=== PATIENT | female | born 1975 | race Caucasian/White ===

== ENCOUNTER 2019-11-01 17:02 | Emergency (ER) | payer MEDICAID, SELFPAY ==
[2019-11-01 17:10] VITALS: BP 121/81; PULSE 90; RESP 18; TEMP 36.9; O2SAT 98; BMI 33.9
--- NOTE | 2019-11-01 17:44 | ED_ITS ---
Documented by User: Mike Fitzpatrick DO 11/02/19 07:06 HPI - Abdominal Pain General: Chief Complaint: Abdominal Pain Stated Complaint: 6 weeks preg/back pain Time Seen by Provider: 11/01/19 17:11 History of Present Illness: HPI narrative: 44-year-old female who comes in today complaining of pelvic pain and back cramping. She was sent here from Dr. Parada at [place] [facility] for a pelvic ultrasound. She is known to be had a beta-hCG of 56,393 today at [place] she has labs in hand see dictation below. First-ever last normal menstrual period she is very unsure she thinks it was maybe about 4 to 6 weeks ago. She had quite a bit of back pain and cramping that started yesterday and is gotten progressively worse today. She is also had some hyperemesis gravidarum she denies any GI blood losses denies any diarrhea. She denies any dysuria urgency or frequency either. She is not been seen or evaluated for this to this point. She was sent here to confirm intrauterine . Reviewing the labs from [place] shows a white count of 11.6 she has a hemoglobin of 12 hematocrit of 38 1 platelets 369 the differential was normal her sodium was 136 potassium is 3.9 BUN 6 creatinine 0.62 and her glucose is 123. MD elicited complaint: other (Pelvic and back pain) Pertinent past history: other ( confirmed by beta-hCG not confirmed to be intrauterine) Onset (ago): day(s) Pain Consistency: intermittent Location: Pelvis Severity: severe Quality: cramping Radiation: back Exacerbating factors: movement Relieving factors: nothing Context: other (Recently discovered ) Associated Symptoms: Reports anorexia, GI cramping, nausea, poor appetite and vomiting; Denies change in bowel habits, change in stool character, coffee ground emesis, constipation, diarrhea, dyspepsia, dysuria, excessive flatus, fever(s), heartburn, hematochezia, hematuria, hematemesis, fecal incontinence, loose stools, melena and syncope Review of Systems Const: Denies: fever(s) ENMT: Denies: throat pain, ear or mastoid pain, nasal discharge or nasal congestion Card: Denies: syncope Resp: Denies: dyspnea, productive cough or non-productive cough GI: Reports: nausea, vomiting and GI cramping; Denies: hematemesis, coffee ground emesis, heartburn, diarrhea, constipation, excessive flatus, fecal incontinence, change in bowel habits, change in stool character, hematochezia or melena : Denies: dysuria or hematuria Skin/Breast: Denies: rash or pruritus PFSH ED PFSH: Medical History CVA (cerebral vascular accident) Tibia/fibula fracture Surgical History Hx of cholecystectomy Social History Smoking and tobacco status: light tobacco smoker Physical Exam Const: COMMON NORMALS: no acute distress GENERAL APPEARANCE: cooperative and comfortable ORIENTATION/CONSCIOUSNESS: Yes awake, Yes oriented to person, Yes oriented to place and Yes oriented to time HENMT: COMMON NORMALS: normocephalic, atraumatic, hearing grossly normal bilaterally, external ears normal, EAC's normal, TM's normal bilaterally, Normal nasal mucous membranes and turbinates present, moist oral mucous membranes and oropharynx normal HEAD & SCALP: normocephalic and atraumatic NOSE: Normal nasal mucous membranes and turbinates present EXTERNAL EAR: Yes external ears normal EXTERNAL AUDITORY CANAL: EAC's normal TYMPANIC MEMBRANE: TM's howie l bilaterally Eye: COMMON NORMALS: Equal, round and reactive pupils present, EOMs intact bilaterally, conjunctivae normal and no scleral icterus CONJUNCTIVA: Yes conjunctivae normal PUPIL: Yes Equal, round and reactive pupils present Neck/C-Spine: COMMON NORMALS: full ROM, no lymphadenopathy, supple and no JVD Lymph: LYMPHATIC: no lymphadenopathy noted and no lymphedema noted Resp: COMMON NORMALS: normal respiratory effort, No retractions, No use of accessory muscles and clear to auscultation bilaterally AUSCULTATION: clear to auscultation bilaterally Cardio: COMMON NORMALS: no JVD, regular rate, regular rhythm and No murmurs present (Cardio) RATE: regular rate RHYTHM: regular rhythm GI: COMMON NORMALS: Soft to palpation and No hepatosplenomegaly present AUSCULTATION: Yes normoactive bowel sounds PALPATION: Yes Soft to palpation, No Tenderness to palpation present (GI), No Guarding due to palpation present (GI) and Yes No hepatosplenomegaly present Extremity: COMMON NORMALS: normal to inspection, capillary refill normal, no clubbing, cyanosis or edema, no calf tenderness and no pedal edema Neuro: SENSORIUM/ORIENTATION: Yes oriented to person, Yes oriented to place and Yes oriented to time Skin: COMMON NORMALS: no rashes or lesions noted GENERAL SKIN EXAM: no rashes or lesions noted Course Vital Signs: Vital signs: Vital Signs Temperature 98.5 F 11/01/19 17:10 Pulse Rate 85 11/01/19 19:30 Respiratory Rate 18 11/01/19 19:30 Blood Pressure 127/83 11/01/19 19:30 Pulse Oximetry 100 11/01/19 19:30 MDM - Abdominal Pain MDM Narrative: Medical decision making narrative: Ordered urine and transvaginal ultrasound. Care turned over to Dr. Whatley at change of shift Lab Data: Labs: Lab Results 11/01/19 Range/Units 18:39 Urine Color Yellow (Yellow) Urine Appearance Clear (CLEAR) Urine pH 6.5 (5-7) Ur Specific Gravit y 1.015 (1.005-1.030) Urine Protein Neg (Negative) Urine Glucose (UA) Norm (Normal) Urine Ketones Negative (Negative) Urine Blood Neg (Negative) Urine Nitrate Negative (Negative) Urine Bilirubin Neg (NEGATIVE) Urine Urobilinogen 1 H (Negative) mg/dL Ur Leukocyte Alina ase Negative (Negative) Discharge Plan Discharge Patient Disposition: Home, Self-Care Clinical Impression: Incomplete miscarriage Condition: Stable Prescriptions: No Action Tylenol 325 mg Tablet 325 mg PO QID PRN (Reason: Pain) RF: 0 atorvastatin 10 mg tablet 10 mg PO DAILY RF: 0 alprazolam 0.5 mg tablet 0.5 mg PO BID RF: 0 Discharge Orders: Discharge Order (Routine); Ordered 11/01/19 Ordered By: Perico Whatley Referrals: Parker Montoya MD [Family Provider] - 4-7 days Discharge Diet: Advance as tolerated Discharge Activity: Resume usual activity Patient Instructions: Threatened Miscarriage (ED) Discharge Date/Time: 11/01/19 19:35 Coding Level of Care Code ED Winch Runner for Chg Fwd Exam Comprehensive Documented by User: Perico Whatley MD 11/01/19 19:30 HPI - Abdominal Pain General: Chief Complaint: Abdominal Pain Stated Complaint: 6 weeks preg/back pain Time Seen by Provider: 11/01/19 17:11 [facility] ED PFSH: Medical History CVA (cerebral vascular accident) Tibia/fibula fracture Surgical History Hx of cholecystectomy Social History Smoking and tobacco status: light tobacco smoker Course Vital Signs: Vital signs: Vital Signs Temperature 98.5 F 11/01/19 17:10 Pulse Rate 85 11/01/19 19:30 Respiratory Rate 18 11/01/19 19:30 Blood Pressure 127/83 11/01/19 19:30 Pulse Oximetry 100 11/01/19 19:30 MDM - Abdominal Pain MDM Narrative: Medical decision making narrative: I took patient over from Dr. Reed. Ultrasound showed 8-week IUP with no heart activity. I informed patient of this and told her she is likely going to have a miscarriage. She states she had a miscarriage previously at 8 weeks like this where they could not find a heart rate. I informed her she does need to follow-up with her PCP Dr. Montoya in 1 to 2 days for a recheck. She is return to the ER if she has any worsening pain or bleeding. She understands and agrees to this plan. Lab Data: Labs: Lab Results 11/01/19 Range/Units 18:39 Urine Color Yellow (Yellow) Urine Appearance Clear (CLEAR) Urine pH 6.5 (5-7) Ur Specific Gravit y 1.015 (1.005-1.030) Urine Protein Neg (Negative) Urine Glucose (UA) Norm (Normal) Urine Ketones Negative (Negative) Urine Blood Neg (Negative) Urine Nitrate Negative (Negative) Urine Bilirubin Neg (NEGATIVE) Urine Urobilinogen 1 H (Negative) mg/dL Ur Leukocyte Alina ase Negative (Negative) Discharge Plan Discharge Patient Disposition: Home, Self-Care Clinical Impression: Incomplete miscarriage Condition: Stable Prescriptions: No Action Tylenol 325 mg Tablet 325 mg PO QID PRN (Reason: Pain) RF: 0 atorvastatin 10 mg tablet 10 mg PO DAILY RF: 0 alprazolam 0.5 mg tablet 0.5 mg PO BID RF: 0 Discharge Orders: Discharge Order (Routine); Ordered 11/01/19 Ordered By: Perico Whatley Referrals: Parker Montoya MD [Family Provider] - 4-7 days Discharge Diet: Advance as tolerated Discharge Activity: Resume usual activity Patient Instructions: Threatened Miscarriage (ED) Discharge Date/Time: 11/01/19 19:35 Coding Level of Care Code ED Winch Runner for Martyg Fwd Exam Comprehensive
--- NOTE | 2019-11-01 17:44 | US_ITS ---
WS: [id number] TRANSABDOMINAL PELVIC AND TRANSVAGINAL PELVIC ULTRASOUND HISTORY: cramping COMPARISON: None available. Uterus: Anteverted uterus is slightly enlarged. Mildly heterogeneous appearance to the myometrium. Endometrium: Intrauterine gestational sac is identified. There is a crown-rump length measuring 1.7 c m which corresponds to a gestation of 8 weeks and 1 day. No movement or cardiac activity identi fied. There is a normal yolk sac. Right ovary: 2.7 cm x 2.4 cm x 2.7 cm. Small simple cyst within the RIGHT ovary measures 2.1 x 2.0 x 2.0 cm. Left ovary: 2.2 cm x 1.6 cm x 1.5 cm. Normal size and vascularity. No free fluid. US/US pelvic with transvaginal IMPRESSION: 1. Intrauterine gestation of 8 weeks and 1 day. No cardiac activity identified . Consistent with embryonic demise. 2. Mildly heterogeneous uterus.
--- NOTE | 2019-11-01 18:06 | PC.NURSE ---
Ultrasound at bedside.
[2019-11-01 18:48] LABS: Add Urine Microscopic? NO
[2019-11-01 18:54] LABS: Bilirubin Urine Neg (NEGATIVE); Blood Urine Neg (Negative); Glucose Urine UA Norm (Normal); Ketones Urine Negative (Negative); Leukocyte Esterase Urine Negative (Negative); Nitrate Urine Negative (Negative); Protein Urine Neg (Negative); Specific Gravity, Urine 1.015 (1.005-1.030); Urine Appearance Clear (CLEAR); Urine Color Yellow (Yellow); Urobilinogen Urine 1 mg/dL (Negative); pH Urine 6.5 (5-7)
[2019-11-01 19:00] VITALS: BP 121/81; PULSE 88; RESP 18; O2SAT 100
[2019-11-01 19:30] VITALS: BP 127/83; PULSE 85; RESP 18; O2SAT 100
== END 2019-11-01 19:35 | disposition home or self-care (01) ==
PROVIDERS: Family Medicine; Emergency Provider Emergency Medicine; Family Provider Family Medicine
DX: O03.4 Incomplete spontaneous abortion without complication (principal); Z86.73 Personal history of transient ischemic attack (TIA), and cerebral infarction without residual deficits; O99.331 Smoking (tobacco) complicating pregnancy, first trimester; F17.210 Nicotine dependence, cigarettes, uncomplicated; Z3A.01 Less than 8 weeks gestation of pregnancy
CPT/HCPCS: 12345; 76830; 76856; 81003; 99281; 99283

== ENCOUNTER 2019-11-17 18:11 | Emergency (ER) | payer MEDICAID, SELFPAY | END 2019-11-17 21:23 | disposition admitted as inpatient to this hospital (09) | LOC: ER 12-28 06:47 | PROVIDERS: Emergency Provider Emergency Medicine; PCP Family Medicine | DX: R10.9 Unspecified abdominal pain (principal); N93.9 Abnormal uterine and vaginal bleeding, unspecified; Z86.73 Personal history of transient ischemic attack (TIA), and cerebral infarction without residual deficits; F17.210 Nicotine dependence, cigarettes, uncomplicated | CPT/HCPCS: 12345; 36415; 76801; 84702; 85014; 85018; 85025; 86850; 86900; 86920; 96375; 99283; J2060; J2270; J7030; J7040; P9016 ==

== ENCOUNTER 2019-11-17 18:11 | Inpatient (IN) | payer MEDICAID, SELFPAY ==
[2019-11-17] VITALS (14 sets, daily range): BP systolic 101–128; BP diastolic 62–87; PULSE 75–111; RESP 13–18; TEMP 36.4–36.9; O2SAT 98–100; BMI 33.9
--- NOTE | 2019-11-17 18:18 | USR_ITS ---
PROCEDURE INFORMATION: Exam: US First Trimester, Transabdominal and US , Transvaginal Exam date and time: 11/17/2019 6:27 PM Age: 44 years old Clinical indication: Lmp or gestational age (in weeks): N/a; Other: Bleeding heavily; Patient HX: Prior ultrasound iup was present but no heart tones were visible. Today iup not visualized. Heterogenous uterus. Patient more than likely still passing rpoc. Neither left or right overy visualized. No fluid in cul de sac. ; Additional info: Abd pain TECHNIQUE: Imaging protocol: Real-time transabdominal obstetrical ultrasound of the maternal pelvis and a first trimester , less than 14 weeks 0 days, with image documentation. Transvaginal imaging was used for better evaluation of the fetus and adnexa. COMPARISON: US pelvic with transvaginal 11/01/2019 6:11 PM FINDINGS: Gestation: Negative for intrauterine gestational sac pole or yolk sac MATERNAL: Uterus: Unremarkable. 13.5 cm x 5.3 cm x 5.5 cm. Uterine endometrium is within normal limits. Cervix: Unremarkable. Right adnexa: Is not visible due to bowel gas Left adnexa: Is not visible due to bowel gas Intraperitoneal space: No intraperitoneal free fluid. US/US OB <= 14 weeks fetus [id number] IMPRESSION: 1. Negative for intrauterine gestational sac pole or yolk sac. 2. Unremarkable uterus and endometrium 3. The ovaries are not visible due to bowel gas
--- NOTE | 2019-11-17 18:25 | W.ED.PREGNAN ---
HPI - General: Chief complaint: Vaginal Bleeding Stated complaint: bleeding and cramping Time Seen by Provider: 11/17/19 18:18 Source: patient Mode of arrival: ambulatory Limitations: no limitations History of Present Illness: HPI Narrative: 84-year-old female who was seen by me a few weeks ago for demise at 8 weeks. She had not been able to follow-up with Dr. Montoya but states morning she started having cramping and bleeding. Patient was seen at [facility] where she states that they did a pelvic exam and then she in the left. Patient states she has had off-and-on bleeding but it has slowed. States she still has abdominal cramping. She denies any fevers. States her pain is sharp in nature and rates it a 7 out of 10. MD Complaint: abdominal pain and vaginal bleeding Onset (ago): hour(s) Pain Consistency: constant Location: pelvis Associated symptoms: Deny abdominal pain, headache(s), nausea or vomiting Review of Systems Const: Denies: fever(s), chills, body aches or change in appetite Eyes: Denies: blurry vision or eye discomfort ENMT: Denies: throat pain or dental pain Card: Denies: chest pain Resp: Denies: dyspnea GI: Denies: abdominal pain, nausea, vomiting or diarrhea : Reports: vaginal bleeding Musc: Denies: neck pain or back pain Skin/Breast: Denies: rash Neuro: Denies: headache(s) Psych: Denies: depression Dannie/Lymph: Denies: easy bruising All/Imm: Denies: urticaria PFSH ED PFSH: Medical History (Updated 11/09/19 @ 00:00 by ) CVA (cerebral vascular accident) Tibia/fibula fracture Surgical History Hx of cholecystectomy Social History Smoking and tobacco status: heavy tobacco smoker Physical Exam Const: COMMON NORMALS: no acute distress, patient oriented x3 and healthy appearing HENMT: COMMON NORMALS: normocephalic and atraumatic HEAD & SCALP: normocephalic and atraumatic Eye: COMMON NORMALS: Equal, round and reactive pupils present and EOMs intact bilaterally PUPIL: Yes Equal, round and reactive pupils present Neck/C-Spine: COMMON NORMALS: full ROM and supple Chest: COMMONS NORMALS: normal inspection of the chest and normal palpation of entire chest wall Resp: COMMON NORMALS: normal respiratory effort, No retractions, No use of accessory muscles and clear to auscultation bilaterally AUSCULTATION: clear to auscultation bilaterally Cardio: COMMON NORMALS: regular rate, regular rhythm and No murmurs present (Cardio) RATE: regular rate RHYTHM: regular rhythm GI: COMMON NORMALS: Normal to inspection, nondistended, normoactive bowel sounds present, Soft to palpation, non-tender and no masses PALPATION: Yes Soft to palpation : OTHER: Large amount of clot in vaginal vault and cervix Extremity: COMMON NORMALS: normal to inspection and full ROM Neuro: COMMON NORMALS: patient oriented x3, moves all extremities and no focal motor deficits Psych: COMMON NORMALS: mental status grossly normal, Normal thought process present and cooperative THOUGHT PROCESS: Normal thought process present Skin: COMMON NORMALS: no rashes or lesions noted and no wounds GENERAL SKIN EXAM: no rashes or lesions noted Course Vital Signs: Vital signs: Vital Signs Temperature 97.6 F 11/17/19 20:34 Pulse Rate 78 11/17/19 20:34 Respiratory Rate 13 11/17/19 20:34 Blood Pressure 117/85 11/17/19 20:34 Pulse Oximetry 100 11/17/19 20:34 MDM - OB/Uterine Contractions MDM Narrative: Medical decision making narrative: Patient presents with a miscarriage with a large amount of vaginal bleeding. On my pelvic exam I pulled out a very large amount of clot but did clear clot from the cervix. After that patient's bleeding has decreased a large amount. She did have a drop of hemoglobin from 10.7-7.9 and will transfuse. Patient's vital signs have improved as well. Dr. Quiros is seen patient in the ER and will admit and monitor for D&C. I spoke to Dr. Montoya who is admitting and Alaina was consulted. Patient stable and will admit. Lab Data: Labs: Lab Results 11/17/19 11/17/19 11/17/19 Range/Units 18:30 18:30 18:30 WBC 14.4 H (4.0-10.0) 10^3/ uL RBC 4.00 L (4.1-5.3) 10^6/u L Hgb 10.7 L (11.5-15.3) g/dL Hct 34.3 L (37.0-47.0) % MCV 85.8 (81-99) fL MCH 26.8 L (28.0-34.0) pg MCHC 31.2 (30.0-36.0) g/dL RDW 14.6 (12.1-15.1) % Plt Count 405 H (130-400) 10^3/c mm MPV 10.2 (7.4-10.4) fL Neut % (Auto) 75.1 % Lymph % (Auto) 19.2 % [place] % (Auto) 3.7 % Eos % (Auto) 1.1 % Baso % (Auto) 0.4 % Neut # (Auto) 10.8 H (1.8-7.7) 10^3/u L Lymph # (Auto) 2.8 (0.8-4.8) 10^3/u L [place] # (Auto) 0.5 (0.2-0.9) 10^3/u L Eos # (Auto) 0.2 (0.0-0.8) 10^3/u L Baso # (Auto) 0.1 (0.0-0.1) 10^3/u L Nucleated RBC % (a uto) 0 % Nucleated RBCs # 0.0 /100WBC Ser , Bia i-Qnt 4091.00 mIU/mL Blood Type Cancelled Rho(D) Type Cancelled Antibody Screen Crossmatch 11/17/19 11/17/19 Range/Units 18:30 20:15 WBC (4.0-10.0) 10^3/ uL RBC (4.1-5.3) 10^6/u L Hgb 7.9 L (11.5-15.3) g/dL Hct 26.0 L (37.0-47.0) % MCV (81-99) fL MCH (28.0-34.0) pg MCHC (30.0-36.0) g/dL RDW (12.1-15.1) % Plt Count (130-400) 10^3/c mm MPV (7.4-10.4) fL Neut % (Auto) % Lymph % (Auto) % [place] % (Auto) % Eos % (Auto) % Baso % (Auto) % Neut # (Auto) (1.8-7.7) 10^3/u L Lymph # (Auto) (0.8-4.8) 10^3/u L [place] # (Auto) (0.2-0.9) 10^3/u L Eos # (Auto) (0.0-0.8) 10^3/u L Baso # (Auto) (0.0-0.1) 10^3/u L Nucleated RBC % (a uto) % Nucleated RBCs # /100WBC Ser , Bia i-Qnt mIU/mL Blood Type A Positive Rho(D) Type Positive Antibody Screen Negative Crossmatch See Detail Critical Care Time Critical Care Time: Critical Care Time: Yes Total Critical Care Time: 36 Attestation: This case had a high probability of a clinically significant, sudden, or life threatening deterioration of this patient's condition which required my full and direct attention, intervention and personal management. Discharge Plan Discharge Prescriptions: No Action acetaminophen [Tylenol] 325 mg Tablet 325 mg PO QID PRN (Reason: Pain) RF: 0 alprazolam 0.5 mg tablet 0.5 mg PO BID RF: 0 Referrals: Parker Montoya MD [Primary Care Provider] - Coding Level of Care Code ED Front Desk Specialist for Chg Fwd Exam Comprehensive
[2019-11-17] MEDS: morphine 4 mg/mL SDV 1 mL IVP (18:40)
[2019-11-17 18:48] LABS: Basophils # 0.1 10^3/uL (0.0-0.1); Basophils % 0.4 %; Eosinophils # 0.2 10^3/uL (0.0-0.8); Eosinophils % 1.1 %; Hematocrit 34.3 % (37.0-47.0); Hemoglobin 10.7 g/dL (11.5-15.3); Lymphocytes # 2.8 10^3/uL (0.8-4.8); Lymphocytes % 19.2 %; Mean Corpuscular HGB Conc 31.2 g/dL (30.0-36.0); Mean Corpuscular Hemoglobin 26.8 pg (28.0-34.0); Mean Corpuscular Volume 85.8 fL (81-99); Mean Platelet Volume 10.2 fL (7.4-10.4); Monocytes # 0.5 10^3/uL (0.2-0.9); Monocytes % 3.7 %; Neutrophils # 10.8 10^3/uL (1.8-7.7); Neutrophils % 75.1 %; Nucleated Red Blood Cells % 0 %; Platelet Count 405 10^3/cmm (130-400); Red Cell Distribution Width 14.6 % (12.1-15.1); White Blood Count 14.4 10^3/uL (4.0-10.0)
--- NOTE | 2019-11-17 18:52 | PC.NURSE ---
us in room for us
[2019-11-17] MEDS: LORazepam 2 mg/mL INJ 1 mL 1 MG IVP (19:30)
[2019-11-17] MEDS: sodium chloride 0.9% 500 ML IV (19:45)
[2019-11-17] MEDS: miSOPROStol 200 mcg Tablet 800 MCG SUBLINGUAL (19:53)
[2019-11-17] MEDS: sodium chloride 0.9% 1,000 ML 1000 ML IV (20:00)
[2019-11-17 20:18] LABS: Hemoglobin 7.9 g/dL (11.5-15.3)
--- NOTE | 2019-11-17 20:37 | PC.NURSE ---
summary of care [id number] nurse entered room to give patient medication. patient hyperventilating and stating that she is feeling very anxious and scared of the bleeding. Patient has currently saturated 2 chucks and 1 pad that patient arrived with. patient stated that she felt very cold and began to sweat profusely. nurse recycled blood pressure and got reading of 93/56 heart rate of 97 patient became hard to respond to questions. informed of patient condition and at bedside. 2nd large boar IV placed, fluids started, vaginal exam set up. during vaginal exam, large clots were pulled from patient along with free blood. 1 unit of blood transfusing at 2034. patient not alert enough to sign consent forms. verbal consent to have daughter sign consent forms and to contact for updates. Campbell Pectal- Daughter phone number [phone]
[2019-11-18] VITALS (34 sets, daily range): BP systolic 90–125; BP diastolic 56–82; PULSE 69–91; RESP 13–18; TEMP 36.3–37.1; O2SAT 97–100
[2019-11-18] MEDS: sodium chloride 0.9% 1,000 ML 100 ML IV ×2 (00:15→10:22)
--- NOTE | 2019-11-18 06:45 | PC.NURSE ---
NURSE UNABLE TO COMPLETE ADMISSION ASSESSMENT DURING SHIFT DUE TO PT RECEIVING MORPHINE AND LORAZEPAM PER MD ORDER BEFORE ADMISSION; PT RESTING IN BED WITH EYES CLOSED DURING SHIFT, AWAKENS WITH VERBAL STIMULI BUT FALLS IMMEDIATELY BACK TO SLEEP. PHYSICAL ASSESSMENT COMPLETED.
--- NOTE | 2019-11-18 07:44 | P.HP_ITS ---
Providers/Chief Complaint Admitting Physician: Parker Montoya MD Primary Care Provider: Parker Montoya MD Chief Complaint: bleeding and cramping HPI CLINICAL IMPLEMENTATION SPECIALIST History of Present Illness Vero Gandhi is a 44 year old female who is 6 and para 4 with approximately 10-week and miscarriage. She was diagnosed in the emergency department approximately 2 weeks ago with a miscarriage but, at that time she was not bleeding heavily and wished to attempt to do this conservatively with expectant management. She began bleeding heavily and cr amping yesterday evening and went to the emergency department. Evaluation in the emergency department found her passing several clots and hemoglobin dropping. She underwent a pelvic exam with removal of a large number of clots which greatly slowed the bleeding. Her hemoglobin dropped to 7.9 and she was transfused 2 units of packed red blood cells yesterday. CBC this morning is pending. She has had some significant cramps overnight but no significant, heavy bleeding. Her blood pressure has remained stable. Review of Systems Const: Reports: fatigue; Denies: fever(s) or chills ENMT: Denies: throat pain or nasal congestion Card: Denies: chest pain, palpitations, irregular heart rhythm or edema Resp: Denies: dyspnea, productive cough or non-productive cough GI: Reports: abdominal pain (Pelvic pain and cramping off and on.); Denies: nausea, vomiting, diarrhea or constipation : Reports: vaginal bleeding and pelvic pain; Denies: flank pain Musc: Reports: back pain (Low back) Psych: Reports: anxiety; Denies: depression Medications/Allergies Home Medications Medication Instructions Recorded Confirmed Last Taken Type acetaminophen [Tylenol] 325 mg PO QID PRN 11/01/19 11/17/19 11/17/19 History alprazolam 0.5 mg PO BID 11/01/19 11/17/19 11/17/19 History Allergies Allergy/AdvReac Type Severity Reaction Status Date / Time codeine Allergy ADR-Halluci Verified 11/17/19 18:37 nating Penicillins Allergy ADR-Halluci Verified 11/17/19 18:25 nating [facility] CLINICAL IMPLEMENTATION SPECIALIST PFSH: Medical History (Updated 11/18/19 @ 07:52 by Parker Montoya MD) CVA (cerebral vascular accident) Tibia/fibula fracture Surgical History Hx of cholecystectomy Social History Smoking and tobacco status: heavy tobacco smoker History History History 6 Term 4 Miscarriages/Ectopic 3 Living Children 4 Vitals/I&O/Wt Last Vital Signs Temp 98.7 F 11/18/19 04:00 Pulse 77 11/18/19 07:00 Resp 16 11/18/19 07:00 BP 115/78 11/18/19 07:00 Pulse Ox 98 11/18/19 07:00 11/17/19 11/18/19 11/18/19 22:59 06:59 14:59 Intake Total 1850 / 1850 350 / 2200 Balance 1850 / 1850 350 / 2200 Weight last 48 hrs Weight 76.204 kg Physical Exam Const: COMMON NORMALS: no acute distress, average body habitus and well nourished Neck/C-Spine: COMMON NORMALS: full ROM Lymph: LYMPHATIC: no lymphadenopathy noted Resp: COMMON NORMALS: normal respiratory effort, No retractions, No use of accessory muscles and clear to auscultation bilaterally Cardio: COMMON NORMALS: regular rate, regular rhythm and No murmurs present (Cardio) GI: COMMON NORMALS: Normal to inspection, nondistended, normoactive bowel sounds present and Soft to palpation PALPATION: Yes Tenderness to palpation present (GI) (Suprapubic tenderness.) Back/Pelvis: COMMON NORMALS: no CVA tenderness; negative for no thoracic nor lumbar tenderness (Mild to moderate low back pain.) Extremity: COMMON NORMALS: normal to inspection, full ROM, capillary refill normal, no calf tenderness and no pedal edema Neuro: COMMON NORMALS: patient oriented x3, CN's II-XII intact bilaterally, moves all extremities and no focal motor deficits Psych: COMMON NORMALS: mental status grossly normal Data : 11/17/19 20:15 A&P Assessment and plan (1) Threatened : Patient has mostly failed outpatient conservative management. Although, her bleeding is slowed and we may be able to continue medical management. She had acute blood loss anemia and required admission after transfusion. Will have a SLOT FLOOR SUPERVISOR evaluation this morning to evaluate whether we require surgical dilatation and curettage. We will continue to monitor the hemoglobin. She is stable from a medical standpoint for surgical treatment of incomplete miscarriage if required. Status: Acute (2) Acute blood loss anemia: Recheck CBC this morning and otherwise further evaluate. Maternal blood type was A+ and therefore she did not require RhoGam. Status: Acute Attestations Medical Necessity Statement*: This patient has required overnight stay secondary to acute blood loss anemia and miscarriage. Dr. Quiros has been consulted and will evaluate whether a dilatation and curettage will be performed today. If that is successful she can probably go home later today and require only a 1 midnight stay. Coding Level of Care Code Acute Core Feeder for [facility] Fwd Exam Comprehensive Diagnoses Threatened O20.0 Acute blood loss anemia D62
[2019-11-18 08:01] LABS: Basophils % 0.4 %; Eosinophils # 0.1 10^3/uL (0.0-0.8); Eosinophils % 1.4 %; Hematocrit 28.4 % (37.0-47.0); Hemoglobin 9.1 g/dL (11.5-15.3); Lymphocytes # 2.5 10^3/uL (0.8-4.8); Mean Corpuscular Hemoglobin 27.7 pg (28.0-34.0); Mean Corpuscular Volume 86.3 fL (81-99); Mean Platelet Volume 9.9 fL (7.4-10.4); Monocytes # 0.5 10^3/uL (0.2-0.9); Monocytes % 4.9 %; Neutrophils # 6.3 10^3/uL (1.8-7.7); Neutrophils % 66.9 %; Nucleated Red Blood Cells % 0 %; Platelet Count 270 10^3/cmm (130-400); Red Blood Count 3.29 10^6/uL (4.1-5.3); White Blood Count 9.5 10^3/uL (4.0-10.0)
--- NOTE | 2019-11-18 08:23 | P.ANESASSM_ITS ---
Pre-Anesthetic Assessment Pre-Anesthetic Assessment: Height/Weight: Height 1.5 m Weight 76.204 kg Temp Pulse Resp BP Pulse Ox 98.7 F 77 16 115/78 98 11/18/19 04:00 11/18/19 07:00 11/18/19 07:00 11/18/19 07:00 11/18/19 07:00 Social: Social History: Tobacco and No alcohol Exam: Pre-Anes Outpt Exam: alert, oriented x 3, clear to auscultation bilaterally and regular rate & rhythm Airway: Submandibular: WNL Cervical ROM: WNL MP: 2 Dentition: Other (poor dentation) History/ROS: No significant history except as noted Pulmonary: Pulmonary: None reported CV/HEM: CV/HEM: None reported : : None reported Hepatic: Hepatic: None reported GI: GI: GERD (occ) Metabolic: Metabolic: Morbid obesity Musc/skel: Musc/skel: None reported Neuropsych: Neuropsych: Anxiety, CVA (2018) and Depression Anesthetic Plan: ASA status: 3 Anesthesia: Anesthesia Evaluation and General Risk of > 500 ml blood loss (7ml/kg in children): No Meds/Allergies Current Medications: Current Medications Generic Name Dose Route Start Last Admin Trade Name Freq PRN Reason Stop Dose Admin Sodium Chloride 1,000 mls @ 1,000 mls/hr 11/17/19 20:45 11/17/19 21:11 Sodium Chloride 0.9% IV Infused .Q1H JERED Infusion Sodium Chloride 500 mls @ 500 mls /hr 11/17/19 20:45 11/17/19 21:11 Sodium Chloride 0.9% IV Infused .Q1H JERED Infusion Sodium Chloride 1,000 mls @ 100 m ls/hr 11/18/19 00:15 11/18/19 07:56 Sodium Chloride 0.9% IV 100 mls/hr .Q10H JERED Infusion PFSH Anesthesia PFSH: Medical History CVA (cerebral vascular accident) Tibia/fibula fracture Surgical History Hx of cholecystectomy Social History Smoking and tobacco status: heavy tobacco smoker Data Anesthesia CBC & Chem 7: 11/17/19 20:15 Other Labs: Laboratory Results - last 48 hr 11/17/19 11/17/19 11/17/19 18:30 18:30 18:30 WBC 14.4 H RBC 4.00 L Hgb 10.7 L Hct 34.3 L MCV 85.8 MCH 26.8 L MCHC 31.2 RDW 14.6 Plt Count 405 H MPV 10.2 Neut % (Auto) 75.1 Lymph % (Auto) 19.2 [place] % (Auto) 3.7 Eos % (Auto) 1.1 Baso % (Auto) 0.4 Neut # (Auto) 10.8 H Lymph # (Auto) 2.8 [place] # (Auto) 0.5 Eos # (Auto) 0.2 Baso # (Auto) 0.1 Nucleated RBC % (auto) 0 Nucleated RBCs # 0.0 Ser , Semi-Qnt 4091.00 Blood Type Cancelled Rho(D) Type Cancelled Antibody Screen Crossmatch 11/17/19 11/17/19 11/18/19 18:30 20:15 07:51 WBC 9.5 RBC 3.29 L Hgb 7.9 L 9.1 L Hct 26.0 L 28.4 L MCV 86.3 MCH 27.7 L MCHC 32.0 RDW 14.0 Plt Count 270 MPV 9.9 Neut % (Auto) 66.9 Lymph % (Auto) 26.0 [place] % (Auto) 4.9 Eos % (Auto) 1.4 Baso % (Auto) 0.4 Neut # (Auto) 6.3 Lymph # (Auto) 2.5 [place] # (Auto) 0.5 Eos # (Auto) 0.1 Baso # (Auto) 0.0 Nucleated RBC % (auto) 0 Nucleated RBCs # 0.0 Ser , Semi-Qnt Blood Type A Positive Rho(D) Type Positive Antibody Screen Negative Crossmatch See Detail Cardiac Studies: No Data to Display
--- NOTE | 2019-11-18 10:18 | PC.NURSE ---
Dr. Quiros at patient bedside performing speculum exam. Speculum filled with blood during exam. Orders received that a D&C procedure is going to be performed.
--- NOTE | 2019-11-18 10:26 | P.CONIM_ITS ---
Providers/Reason for Consult Consulting Physican/Specialty*: PRIMARY SCHOOL TEACHER LIBRARIAN Reason for Consult*: incomplete AB Attending Physician: Parker Montoya MD Primary Care Provider: Parker Montoya MD PRIMARY SCHOOL TEACHER LIBRARIAN Consult HPI History of Present Illness Mrs. Gandhi is a 44 year old female 6 and para 4 with approximately 10- week pregnanc. She was diagnosed in the emergency department approximately 2 weeks ago with a miscarriage. She came to ER last night with heavy vaginal bleeding. TV-US performed at ER showed no IUP. A blood transfusion was ordered from ER. Review of Systems Const: Reports: fatigue; Denies: fever(s) or chills ENMT: Denies: throat pain or nasal congestion Card: Denies: chest pain, palpitations, irregular heart rhythm or edema Resp: Denies: dyspnea, productive cough or non-productive cough GI: Reports: abdominal pain (Pelvic pain and cramping off and on.); Denies: nausea, vomiting, diarrhea or constipation : Reports: vaginal bleeding and pelvic pain; Denies: flank pain Musc: Reports: back pain (Low back) Psych: Reports: anxiety; Denies: depression Meds/Allergies Home Medications and Allergies Home Medications Medication Instructions Recorded Confirmed Last Taken Type acetaminophen [Tylenol] 325 mg PO QID PRN 11/01/19 11/17/19 11/17/19 History alprazolam 0.5 mg PO BID 11/01/19 11/17/19 11/17/19 History Allergies Allergy/AdvReac Type Severity Reaction Status Date / Time codeine Allergy ADR-Halluci Verified 11/17/19 18:37 nating Penicillins Allergy ADR-Halluci Verified 11/17/19 18:25 nating Current Medications Current Medications Generic Name Dose Route Start Last Admin Trade Name Freq PRN Reason Stop Dose Admin Sodium Chloride 1,000 mls @ 1,000 mls/hr 11/17/19 20:45 11/17/19 21:11 Sodium Chloride 0.9% IV Infused .Q1H JERED Infusion Sodium Chloride 500 mls @ 500 mls/hr 11/17/19 20:45 11/17/19 21:11 Sodium Chloride 0.9% IV Infused .Q1H JERED Infusion Sodium Chloride 1,000 mls @ 100 mls/hr 11/18/19 00:15 11/18/19 10:22 Sodium Chloride 0.9% IV 100 mls/hr .Q10H JERED Administration PFSH PRIMARY SCHOOL TEACHER LIBRARIAN PFSH: Medical History (Updated 11/18/19 @ 10:31 by Neftaly Quiros MD) CVA (cerebral vascular accident) Tibia/fibula fracture Surgical History Hx of cholecystectomy Social History Smoking and tobacco status: heavy tobacco smoker Vitals/I&O/Wt Last Vital Signs Temp 98.7 F 11/18/19 04:00 Pulse 77 11/18/19 07:00 Resp 16 11/18/19 07:00 BP 115/78 11/18/19 07:00 Pulse Ox 98 11/18/19 07:00 11/17/19 11/18/19 11/18/19 22:59 06:59 14:59 Intake Total 1850 / 1850 350 / 2200 1000.000 / 1000.000 Balance 1850 / 1850 350 / 2200 1000.000 / 1000.000 Weight last 48 hrs Weight 76.204 kg Physical Exam Const: COMMON NORMALS: no acute distress, average body habitus, patient oriented x3 and well nourished Neck/C-Spine: COMMON NORMALS: full ROM Lymph: LYMPHATIC: no lymphadenopathy noted Resp: COMMON NORMALS: normal respiratory effort, No retractions, No use of accessory muscles and clear to auscultation bilaterally AUSCULTATION: clear to auscultation bilaterally Cardio: COMMON NORMALS: regular rate, regular rhythm and No murmurs present (Cardio) RATE: regular rate RHYTHM: regular rhythm GI: COMMON NORMALS: Normal to inspection, nondistended, normoactive bowel sounds present and Soft to palpation PALPATION: Yes Soft to palpation and Yes Tenderness to palpation present (GI) (Suprapubic tenderness.) : COMMON NORMALS: Yes no CVA tenderness and Yes normal bimanual exam BLADDER/KIDNEY EXAM: Yes no CVA tenderness EXTERNAL FEMALE EXAM: Yes normal appearance of the urethra SPECULUM EXAM - VAGINA: No lesion and Yes vaginal bleeding SPECULUM EXAM - CERVIX: Yes Cervical os open and Yes Cervical bleeding BIMANUAL EXAM - VAGINA & UTERUS: Yes normal bimanual exam OB/EXTERNAL & SPECULUM: Cervical os open and vaginal bleeding Back/Pelvis: COMMON NORMALS: no CVA tenderness; negative for no thoracic nor lumbar tenderness (Mild to moderate low back pain.) Extremity: COMMON NORMALS: normal to inspection, full ROM, capillary refill normal, no calf tenderness and no pedal edema Neuro: COMMON NORMALS: patient oriented x3, CN's II-XII intact bilaterally, mo ves all extremities and no focal motor deficits Psych: COMMON NORMALS: mental status grossly normal A&P Assessment and plan (1) Incomplete : 44-year-old female with an approximate estimated gestational age of 10 weeks who had a miscarriage 2 weeks ago. Continue with vaginal bleeding after blood clots cleared from the cervix in the ER last night. She has received 2 units of packed RBCs. Patient was counseled regarding her continuing with vaginal bleeding and D&C is indicated to clear any possible remanent of product of conception and control the bleeding. scheduled for D&C Status: Acute (2) Anemia: Status: Acute Coding Level of Care Code Acute Mailer for [facility] Diagnoses Incomplete O03.4 Anemia D64.9
--- NOTE | 2019-11-18 10:55 | PC.NURSE ---
Patient taken to OR for surgery per Dr. Quiros's orders.
--- NOTE | 2019-11-18 12:07 | PM.OP ---
Operative Report Date of procedure: November 18, 2019 Pre-op Diagnosis: Incomplete AB Post-op diagnosis: same Post-op Findings: incomplete AB with products of conception in uterus and cervix Procedure Done: dilation and curettage Specimens removed/disposition: product of conception Surgeon: Neftaly Quiros Anesthesia: MAC Estimated blood loss (mL): 10 IV fluids (mL): 1,000 Complications: none Findings: dilated cervix with products conception Condition: stable Disposition: PACU Brief History: 44-year-old female with an approximately EGA of 10 weeks, with an incomplete AB Procedure: After informed consent, the patient was taken to the Operating Room where general anesthesia was administered. The patient was examined under anesthesia and found to have a normal uterus with normal adnexa. She was placed in the dorsal lithotomy position and prepped and draped in sterile fashion. A sterile weighted speculum was placed in the patient?s vagina. A single-tooth tenaculum was then applied to the cervix. The cervix was noticed to be dilated with products conception, the cervix was cleared of product of conception with ring forceps. The uterus was then gently sounded to 12cm and a curette was advanced gently to the uterine fundus and product of conception emptied. A sharp curettage was then performed until a gritty texture was noted. There was minimal bleeding noted and the tenaculum was removed with good hemostasis noted. The patient tolerated the procedure well. The patient was taken to the recovery area in stable condition. Associated Problem List Diagnoses (1) Incomplete :
--- NOTE | 2019-11-18 12:52 | PC.NURSE ---
VALUABLES-PT ARRIVED IN OPS VIA [facility] AT 1102 AND STATED SHE HAD MONEY IN HER PURSE. PT HAD ALPRAZOLAM, MORA MONEY, AND 1 CAN OF GRIZZLY SNUFF. MEDICINE AND MONEY COUNTED IN FRONT OF THE PT BY MYSELF AND HER OB NURSE, KHALIDA RÍOS RN. ALL THESE ITEMS WERE LOGGED AND PLACED IN SEALED ENVELOPE. KHALIDA TOOK ENVELOPE AND PURSE TO LOCK UP IN THE OB DEPARTMENT. THEN PT TO SURGERY
[2019-11-18] MEDS: ketorolac 30 mg/mL INJ IVP (13:34)
--- NOTE | 2019-11-18 14:01 | PC.NURSE ---
Received call from OPS requesting presence in their department at patient bedside to verify and collect her valuables to bring to OB so they would be there after her surgery was completed. At patient bedside in OPS at 1139, verifying the money and alprazolam 0.5 mg with Abby Guerra RN and patient, which were then placed in the patient's valuables envelope. Also placed in the patient's valuables envelope was 1 can of grizzly snuff. After these items were placed in the valuables envelope, this software writer signed over the seal of the envelope and showed the patient. Education was provided to the patient at this time that she would not be receiving these items back during her hospital stay, she would receive them when she was to be discharged home, as we are non tobacco facility, so she won't need to have access to any of these items during her stay. Patient acknowledged understanding.
[2019-11-18 17:56] LABS: Basophils % 0.3 %; Eosinophils # 0.1 10^3/uL (0.0-0.8); Eosinophils % 1.3 %; Hematocrit 25.4 % (37.0-47.0); Hemoglobin 8.1 g/dL (11.5-15.3); Lymphocytes # 2.2 10^3/uL (0.8-4.8); Lymphocytes % 24.4 %; Mean Corpuscular HGB Conc 31.9 g/dL (30.0-36.0); Mean Corpuscular Hemoglobin 27.7 pg (28.0-34.0); Mean Platelet Volume 10.2 fL (7.4-10.4); Monocytes # 0.3 10^3/uL (0.2-0.9); Monocytes % 3.6 %; Neutrophils # 6.4 10^3/uL (1.8-7.7); Nucleated Red Blood Cells % 0 %; Platelet Count 245 10^3/cmm (130-400); Red Blood Count 2.92 10^6/uL (4.1-5.3); Red Cell Distribution Width 14.4 % (12.1-15.1); White Blood Count 9.2 10^3/uL (4.0-10.0)
--- NOTE | 2019-11-19 14:17 | PC.RESP ---
Smoking Cessation information and a schedule of classes sent to patient.
--- NOTE | 2019-12-06 07:13 | P.DS_ITS ---
Discharge Providers Date of Admission: 11/17/19 20:30 Date of Discharge: November 18, 2019 Attending Provider at Admission: Parker Montoya MD Attending Provider at Discharge: Parker Montoya MD Primary Care Provider: Parker Montoya MD Diagnoses at Discharge Discharge Diagnosis (1) Incomplete : Status: Resolved Problem details: This 44-year-old female was admitted with demise and spontaneous . An attempt was made for her to pass the material at home but she was unable to do so. She came to the [facility] emergency department with heavy bleeding and cramping. She was transfused 2 units of blood and admitted to the hospital. Reason for Visit Reason for Visit: bleeding and cramping Hospital Course Hospital Course: Patient was admitted to the hospital and given 2 units of packed red blood cells. The bleeding had slowed and Dr. Foley was consulted. A dilatation and curettage was obtained which has made the bleeding stop. After recovery she was ambulating well and tolerating regular diet. She was felt to be stable for discharge home and was discharged. Physical Exam Narrative: EXAM NARRATIVE: Patient examination was done earlier in the day on the day of discharge. She was doing well. She was felt to be stable for dilatation and curettage by this physician's examination. The patient was doing well and ambulating well and was felt to be stable for discharge. Discharge Data Data Completed and Pending: Completed Studies During Hospitalization Category Date Time Status Pathology: Surgic al [PTH] Routine Pth 11/18/19 12:06 Completed US OB <= 14 weeks fetus 41674 Urgen t Ultrasound 11/17/19 18:18 Completed Vitals: Last Vital Signs Temp 97.4 F L 11/18/19 13:02 Pulse 82 11/18/19 19:15 Resp 16 11/18/19 19:15 BP 98/67 11/18/19 19:15 Pulse Ox 100 11/18/19 19:15 Discharge Plan Discharge Patient Disposition: Home, Self-Care Condition: Stable Prescriptions: New ferrous sulfate 325 mg (65 mg iron) tablet 325 mg PO BID 30 Days Qty: 60 RF: 0 Continued alprazolam 0.5 mg tablet 0.5 mg PO BID RF: 0 Tylenol 325 mg Tablet 325 mg PO QID PRN (Reason: Pain) Qty: 60 RF: 0 Discharge Orders: Discharge Order (Routine); Ordered 11/18/19 Ordered By: Neftaly Quiros Referrals: Neftaly Quiros MD [Physician] - (Call the office and schedule an appointment with Dr. Quiros for two weeks.) Parker Montoya MD [Primary Care Provider] - (Follow up with Dr. Montoya as necessary.) Discharge Diet: Regular Discharge Activity: Increase activity as tolerated Patient Instructions: Iron Supplements (By mouth), Dilation and Curettage (DC), OB D&C - [facility], OB Discharge Report Activity Restrictions/Additional Instructions: Pelvic rest for 6 weeks.: NO sex, no tampons, no vaginal douches. Return to the ER if any fever, increase bleeding or pain. Discharge Date/Time: 11/18/19 19:33 Discharge Attestations Time Spent in Discharge Care*: less than 30 min Specific Discharge Activities: Specific discharge activities: documenting/other paperwork Quality Metrics Clinical Quality Measures During this hospital stay, did patient experience: None Coding Level of Care Code Acute Environmental Health Safety Manager for g [facility]wd Diagnoses Incomplete O03.4
== END 2019-11-18 19:33 | disposition home or self-care (01) | DRG 770 ==
LOC: ER 18:21 → OBGYN 20:45
PROVIDERS: Emergency Medicine; Obstetrics & Gynecology; Admitting Provider Family Medicine; PCP Family Medicine; Visit Provider Family Medicine
PROC: 10D17ZZ Extraction of Products of Conception, Retained, Via Natural or Artificial Opening (ICD-10-PCS; CPT 58120; principal; 2019-11-18 11:30)
DX: O03.4 Incomplete spontaneous abortion without complication (principal); Z86.73 Personal history of transient ischemic attack (TIA), and cerebral infarction without residual deficits; F17.210 Nicotine dependence, cigarettes, uncomplicated; D64.9 Anemia, unspecified
CPT/HCPCS: 12345; 36415; 36430; 76801; 84702; 85014; 85018; 85025; 86850; 86900; 86920; 88305; 96375; 99283; E0352; J1885; J2001; J2060; J2250; J2270; J2704; J3010; J7030; J7040; P9016

== ENCOUNTER 2022-03-27 09:26 | Observation (INO) | payer MEDICAID, SELFPAY ==
[2022-03-25 10:44] VITALS: BMI 33.5
[2022-03-25 11:06] LABS: Add Urine Microscopic? NO; Charge for UA Resulting for Rev
[2022-03-25 11:08] LABS: Basophils # 0.1 10^3/uL (0.0-0.1); Basophils % 0.7 %; Eosinophils # 0.2 10^3/uL (0.0-0.8); Eosinophils % 2.4 %; Hematocrit 36.5 % (37.0-47.0); Hemoglobin 10.6 g/dL (11.5-15.3); Lymphocytes # 1.9 10^3/uL (0.8-4.8); Lymphocytes % 19.8 %; Mean Corpuscular Hemoglobin 21.5 pg (28.0-34.0); Mean Corpuscular Volume 73.9 fl (81-99); Mean Platelet Volume 9.2 fL (7.4-10.4); Monocytes # 0.6 10^3/uL (0.2-0.9); Monocytes % 6.4 %; Neutrophils # 6.79 10^3/uL (1.8-7.7); Neutrophils % 70.2 %; Nucleated Red Blood Cells % 0 %; Platelet Count 450 10^3/cmm (130-400); Red Blood Count 4.94 10^6/uL (4.1-5.3); Red Cell Distribution Width 17.5 % (12.1-15.1); White Blood Count 9.7 10^3/uL (4.0-10.0)
[2022-03-25 11:16] LABS: Urine Color Yellow (Yellow)
[2022-03-25 11:17] LABS: Bilirubin Urine Neg (Negative); Blood Urine Neg (Negative); Glucose Urine UA Norm (Normal); Ketones Urine 1+ (Negative); Leukocyte Esterase Urine Negative (Negative); Nitrate Urine Negative (Negative); Protein Urine Neg (Negative); Urine Appearance Clear (CLEAR); Urobilinogen Urine Norm (Negative); pH Urine 6.5 (5-7)
[2022-03-25 11:23] LABS: Alanine Aminotransferase 16 U/L (0-33); Albumin Level 4.6 g/dL (3.5-5.2); Alkaline Phosphatase 101 U/L (35-105); Anion Gap 14.4 (5-19); Aspartate Amino Transferase 15 U/L (0-32); Blood Urea Nitrogen 9 mg/dL (6-20); Calcium 9.5 mg/dL (8.5-10.5); Carbon Dioxide 27 mmol/L (22-29); Chloride 100 mmol/L (98-107); Globulin 2.7 g/dL (1.3-4.6); Glomerular Filtration Rate 89.7 mL/min (90-130); Glucose 116 mg/dL (65-115); Osmolality Calculated 284 mOsm/kg (285-295); Potassium 4.4 mmol/L (3.5-5.1); Sodium 137 mmol/L (136-145); Total Bilirubin 0.2 mg/dL (0.15-1.2); Total Protein 7.3 g/dL (6.6-8.7)
--- NOTE | 2022-03-25 11:37 | ANES.PREANE2 ---
Pre-Anesthetic Assessment Height/Weight: Height 1.5 m Weight 75.296 kg Preop Diagnosis: Abnormal uterine bleeding, fibroid uterus Operation Date: 03/27/22 07:00 Proposed Procedures p Total vaginal hysterectomy, bilateral salpingo oophorectomy 06292,D25.9(Not Applicable) - Neftaly Quiros MD s Salpingo-Oophorectomy (Vaginal)(Bilateral) - Neftaly Quiros MD Familial anesthetic complications: None Social Tobacco (chews) Exam alert, oriented x 3, clear to auscultation bilaterally and regular rate & rhythm Airway Mallampati: Class II Dentition: full Pulmonary None reported CV/HEM None reported None reported Hepatic None reported GI None reported Metabolic None reported Musc/skel None reported Neuropsych Cerebrovascular Accident (a few years ago - no residual symptoms, unknown etiology) Anesthetic Plan ASA status: 2 Anesthesia: General Risk of > 500 ml blood loss (7ml/kg in children): No Medications/Allergies Home Medications Medication Instructions Recorded Confirmed Last Taken Type alprazolam 0.5 mg tablet 0.5 mg PO BID 11/01/19 03/25/22 11/17/19 History acetaminophen 325 mg tablet 325 mg PO QID PRN Pain #60 tabs 11/18/19 03/25/22 11/17/19 Rx (Tylenol) aspirin 81 mg tablet,delayed 81 mg PO DAILY 02/11/22 03/25/22 Unknown History release (Adult Low Dose Aspirin) Allergies Allergy/AdvReac Type Severity Reaction Status Date / Time codeine Allergy ADR-Halluci Verified 03/25/22 10:42 nating Penicillins Allergy ADR-Halluci Verified 03/25/22 10:42 nating [facility] Anesthesia Medical History (Updated 03/25/22 @ 09:07 by Neftaly Quiros MD) CVA (cerebral vascular accident) Tibia/fibula fracture Surgical History Hx of cholecystectomy Family History (Updated 02/11/22 @ 09:04 by Sophia Dias RN) Mother Anesthesia complication Diabetes Hyperlipidemia Family/Other Ovarian cancer believes someone on her paternal side has ovarian cancer Denies family history of Colon cancer Clotting disorder Heart disease Breast cancer Bleeding disorder Hypertension Uterine cancer Thyroid condition Stroke Social History Smoking and tobacco status: never smoked Female Reproductive History Date of last menstrual period: 03/06/22 Data Anesthesia : 03/25/22 11:00 03/25/22 11:00 Short CBC 03/25/22 Range/Units 11:00 WBC 9.7 (4.0-10.0) 10^3/uL Hgb 10.6 L (11.5-15.3) g/dL Hct 36.5 L (37.0-47.0) % MCV 73.9 L (81-99) fl Plt Count 450 H (130-400) 10^3/cmm Neut % (Auto) 70.2 % Neut # (Auto) 6.79 (1.8-7.7) 10^3/uL BMP 03/25/22 11:00 Sodium 137 Potassium 4.4 Chloride 100 Carbon Dioxide 27 BUN 9 Creatinine 0.7 Glucose 116 H Calcium 9.5 Liver Function 03/25/22 Range/Units 11:00 Total Bilirubin 0.2 (0.15-1.2) mg/dL AST 15 (0-32) U/L ALT 16 (0-33) U/L Alkaline Phosphatase 101 (35-105) U/L Albumin 4.6 (3.5-5.2) g/dL Urine 03/25/22 Range/Units 11:00 Urine Color Yellow (Yellow) Urine Appearance Clear (CLEAR) Urine pH 6.5 (5-7) Ur Specific [place] 1.020 (1.005-1.030) Urine Protein Neg (Negative) Urine Glucose (UA) Norm (Normal) Urine Ketones 1+ H (Negative) Urine Nitrate Negative (Negative) Urine Bilirubin Neg (Negative) Ur Leukocyte Esterase Negative (Negative) Cardiac Studies: No Data to Display
[2022-03-27] VITALS (15 sets, daily range): BP systolic 99–118; BP diastolic 62–91; PULSE 62–88; RESP 11–18; TEMP 36.2–36.9; O2SAT 93–100; BMI 33.5
[2022-03-27 06:05] LABS: OR HCG Qualitative Urine Negative (Negative)
[2022-03-27] MEDS: sodium chloride 0.9% 1,000 ML 30 ML IV (06:14)
[2022-03-27] MEDS: scopolamine 1.5 Patch 1 PATCH TRANSDERMA (06:25)
[2022-03-27] MEDS: sodium chloride 0.9% 500 ML IV (06:26)
--- NOTE | 2022-03-27 06:33 | P.ANESUD_ITS ---
Pre-Anesthetic Update Pre-Anesthetic Assessment: Date of Surgery/Procedure: 03/27/22 Preop Nataliia gnosis: Abnormal uterine bleeding, fibroid uterus Proposed Procedure: Operation Date: 03/27/22 07:00 Proposed Procedures p Total vaginal hysterectomy, bilateral salpingo oophorectomy 17175,D25.9(Not Applicable) - Neftaly Quiros MD s Salpingo-Oophorectomy (Vaginal)(Bilateral) - Neftaly Quiros MD Any changes to Pre-Anesthetic Assessment?: No Last Intake: Intake Last Liquid Date 03/26/22 Last Liquid Time 23:00 Last Solid Date 03/26/22 Last Solid Time 23:00 Labs Last 48hrs: Short CBC 03/25/22 Range/Units 11:00 WBC 9.7 (4.0-10.0) 10^3/ uL Hgb 10.6 L (11.5-15.3) g/dL Hct 36.5 L (37.0-47.0) % MCV 73.9 L (81-99) fl Plt Count 450 H (130-400) 10^3/c mm Neut % (Auto) 70.2 % Neut # (Auto) 6.79 (1.8-7.7) 10^3/u L BMP 03/25/22 11:00 Sodium 137 Potassium 4.4 Chloride 100 Carbon Dioxide 27 BUN 9 Creatinine 0.7 Glucose 116 H Calcium 9.5 Liver Function 03/25/22 Range/Units 11:00 Total Bilirubin 0.2 (0.15-1.2) mg/dL AST 15 (0-32) U/L ALT 16 (0-33) U/L Alkaline Phosphata se 101 (35-105) U/L Albumin 4.6 (3.5-5.2) g/dL Urine 03/25/22 Range/Units 11:00 Urine Color Yellow (Yellow) Urine Appearance Clear (CLEAR) Urine pH 6.5 (5-7) Ur Specific [place] y 1.020 (1.005-1.030) Urine Protein Neg (Negative) Urine Glucose (UA) Norm (Normal) Urine Ketones 1+ H (Negative) Urine Nitrate Negative (Negative) Urine Bilirubin Neg (Negative) Ur Leukocyte Alina ase Negative (Negative) Blood Bank 03/25/22 11:00 Blood Type A Positive Rho(D) Type Positive Antibody Screen Positive Vitals: Temperature 98.3 F 03/27/22 05:53 Temperature Source Temporal Artery S can 03/27/22 05:53 Pulse Rate 83 03/27/22 05:53 Respiratory Rate 17 03/27/22 05:53 Blood Pressure 118/91 03/27/22 05:53 Blood Pressure Opal n 100 03/27/22 05:53 Pulse Oximetry 100 03/27/22 05:53 Oxygen Delivery Me thod 03/27/22 05:54 Exam: Pre-Anes Outpt Exam: alert, oriented x 3, clear to auscultation bilaterally and regular rate & rhythm Cardiac Studies: No Data to Display
[2022-03-27] MEDS: vancomycin 1,000 MG in sodium chloride 0.9% 250 ML 250 MG IV (06:44)
[2022-03-27] MEDS: metoclopramide 5 mg/mL SDV 2 mL 10 MG IVP (06:48)
[2022-03-27] MEDS: famotidine 20 mg/2 mL INJ IVP (06:48)
--- NOTE | 2022-03-27 06:54 | W.PM.OPSUD ---
Surgery/Procedure H&P Update DATE OF PROCEDURE: March 27, 2022 DATE H&P PERFORMED: 03/25/22 H&P UPDATE INFORMATION: I have reviewed H&P completed within last 30 days, I have examined patient prior to procedure and No changes to prior documentation PREOP DIAGNOSIS: Abnormal uterine bleeding, fibroid uterus PLANNED PROCEDURE: Operation Date: 03/27/22 07:00 Proposed Procedures p Total vaginal hysterectomy, bilateral salpingo oophorectomy 08601,D25.9(Not Applicable) - Neftaly Quiros MD s Salpingo-Oophorectomy (Vaginal)(Bilateral) - Neftaly Quiros MD
[2022-03-27] MEDS: citric acid-sodium citrate 30 mL UDC PO (06:58)
[2022-03-27] MEDS: levofloxacin-dextrose 5 % 500 MG/100 ML PREMIX 100 MG IV (07:02)
--- NOTE | 2022-03-27 08:55 | PM.OP ---
Operative Report Date of procedure: March 27, 2022 Pre-op diagnosis: Preop Diagnosis Abnormal uterine bleeding, fibroid uterus Post-op diagnosis: Same as above Procedure done: Total vaginal hysterectomy and bilateral salpingo-oophorectomy Specimens removed/disposition: Uterus. Left and right fallopian tube and ovaries Surgeon: Neftaly Quiros MD Estimated blood loss (mL): 150 IV fluids (mL): 600 Urine output (mL): 100 Complications: None Procedure: After informed consent and risks, benefits, indications and alternatives reviewed with the patient was taken to the operating room. The patient was placed in dorsal lithotomy position prepped, and draped in the usual sterile fashion. The pre-procedure timeout verifying the correct patient, procedure, site and side, could not requirements was performed and acknowledge by the OR team. A De Luna catheter was placed. A Bookwalter vaginal retractor was placed into the vagina in usual manner visualize the cervix. Cervix was grasped with a single tooth tenaculum and circumferentially infiltrated with 2% lidocaine with epinephrine. Then cervix was circumferentially incised with bovie and the bladder was dissected off the pubovesical cervical fascia anteriorly with a sponge stick and Metzenbaum scissors. The anterior peritoneal reflection was identified and the anterior cul-de-sac was entered sharply with Metzenbaum scissors. The same procedure was performed posteriorly and a posterior colpotomy was made through the posterior cul-de-sac space without difficulty and the posterior blade of the Bookwalter vaginal retractor was advanced posteriorly into the cul-de-sac. At this time, the left and right uterosacral ligaments were isolated and ligated with 0 Vicryl. The Voyant device was placed over the uterosacral ligaments on either side and was then used in a serial fashion up through the cardinal ligaments bilaterally cross-clamped, cut, and sealed with the Voyant device. Finally, the uterine arteries were cross-clamped, cut, sealed and ligated with the Voyant device. Hemostasis was assured. The broad ligaments were then serially clamped, sealed and cut with the Voyant device on both sides. Excellent hemostasis was visualized. Both cornua were clamped, sealed and cut with the Voyant device. Then the pedicles were then suture ligated with excellent hemostasis. The uterus was excised and submitted for pathologic evaluation. No other abnormalities were noted in the pelvic cavity. Then the right side Infundibular ligament was identified. The ureter was confirmed along the pelvic side wall and peristalsis was noted. The Voyant device was then used to clamp, sealed and transcepted at middistance, again being sure to be clear of the ureter and the fallopian tube and ovary were removed. The same process was then repeated on the left side. Good hemostasis was assure on both sides. The peritoneum was then closed in a pursestring fashion with 0 Vicryl suture. The vaginal cuff angles were closed with [id number] #0 Vicryl suture on both sides and transfixed with the ipsilateral cardinal and uterosacral ligaments. Methylene blue was given IV. The remainder of the vaginal cuff was closed with #0 Vicryl in a running locked fashion. At this time, instruments were removed from the vagina at hemostasis assured. De Luna catheter was noted yielding clear genaro urine. The patient was taken out of dorsal lithotomy position and awakened from the general anesthesia. The patient tolerated the procedure well and was taken to the PACU recovery room in a stable condition. Sponge, lap, needle and instruments counts were correct x3.
[2022-03-27] MEDS: ALPRAZolam 0.5 mg Tablet PO ×2 (10:07→18:14)
[2022-03-27] MEDS: docusate sodium 100 mg Capsule PO ×2 (10:07→18:14)
[2022-03-27] MEDS: dextrose 5%-lactated ringers 1,000 ML 125 ML IV (10:09)
--- NOTE | 2022-03-27 12:42 | ANE.PACU2 ---
Inpatient post-anesthesia follow up: Airway intact: Yes Vital signs: Temperature 97.7 F Pulse Rate 62 Respiratory Rate 14 Blood Pressure 113/71 Pulse Oximetry 96 Oxygen Delivery Me thod Room Air Oxygen Flow Rate Fraction of Inspir ed Oxygen Hydration adequate: Yes Nausea and vomiting: No Pain level: 1 Mental status: Baseline
[2022-03-27] MEDS: ketorolac 30 mg/mL INJ IVP ×2 (14:08→20:25)
[2022-03-27] MEDS: HYDROcodone-acetaminophen 5-325 mg Tablet PO (15:45)
[2022-03-28] MEDS: ketorolac 30 mg/mL INJ IVP (02:17)
[2022-03-28 04:12] VITALS: BP 100/60; PULSE 72; RESP 17; TEMP 36.7; O2SAT 100
[2022-03-28 05:56] LABS: Hematocrit 30.5 % (37.0-47.0); Hemoglobin 8.5 g/dL (11.5-15.3); Mean Corpuscular HGB Conc 27.9 g/dL (30.0-36.0); Mean Corpuscular Hemoglobin 21.6 pg (28.0-34.0); Mean Corpuscular Volume 77.4 fl (81-99); Mean Platelet Volume 9.5 fL (7.4-10.4); Platelet Count 370 10^3/cmm (130-400); Red Blood Count 3.94 10^6/uL (4.1-5.3); Red Cell Distribution Width 17.3 % (12.1-15.1); White Blood Count 18.8 10^3/uL (4.0-10.0)
[2022-03-28] MEDS: docusate sodium 100 mg Capsule PO (08:15)
[2022-03-28] MEDS: ibuprofen 800 mg tablet PO (08:15)
[2022-03-28] MEDS: ALPRAZolam 0.5 mg Tablet PO (08:15)
[2022-03-28 08:19] VITALS: BP 114/74; PULSE 90; RESP 15; TEMP 36.6; O2SAT 100
--- NOTE | 2022-03-28 09:07 | XRR_ITS ---
PROCEDURE INFORMATION: Exam: XR Chest Exam date and time: 03/28/2022 9:42 AM Age: 47 years old Clinical indication: Shortness of breath TECHNIQUE: Imaging protocol: Radiologic exam of the chest. Views: 2 views. COMPARISON: No relevant prior studies available. FINDINGS: Lungs: Unremarkable. No consolidation. Pleural spaces: Unremarkable. No pleural effusion. No pneumothorax. Heart/Mediastinum: Unremarkable. No cardiomegaly. Bones/joints: Unremarkable. XR/XR chest 2V* [id number] IMPRESSION: No acute findings.
--- NOTE | 2022-03-28 09:12 | CT_ITS ---
WS: [id number] CT CHEST TECHNIQUE: Contrast enhanced CT of the chest with coronal and sagittal reformatted images. This was f ollowed by noncontrast and CTA chest of the thoracic aorta to better evaluate aortic irregularity see n on the initial study CLINICAL INFORMATION: chest pain and shortness of breath COMPARISON: None. DLP: 429.[address] scans at [facility] use at least one of these dose optimization techniques: automated e xposure control; mA and/or kV adjustment per patient size (includes targeted exams where dose is matc hed to clinical indication); or iterative reconstruction. FINDINGS: Cardiac motion artifact degrades images at the aortic root. Patient was re-injected and exa m repeated with CTA protocol to better evaluate the irregularity at the aortic root and ascending aor ta. Normal caliber ascending and descending thoracic aorta. No evidence of aortic dissection. Proximal ma in pulmonary arteries are normal in appearance. Both lungs are well aerated. Mild bibasilar atelectas is. Subsegmental atelectasis LEFT lower lobe. No focal pneumonia or significant pleural fluid. No pericardial effusion. No mediastinal or hilar lymphadenopathy. No axillary lymphadenopathy. Cholecystectomy. Adrenal glands are normal. Normal GE junction. Mild diffuse fatty infiltration liver . Mild hepatomegaly. CT/CT chest w con* [id number] IMPRESSION: 1. Slight atelectasis in the lung bases. 2. No focal pneumonia. Lungs otherwise well aerated. 3. Normal caliber ascending and descending thoracic aorta. No evidence of aort ic dissection. Proximal main pulmonary arteries are normal. 4. No other suspicious findings.
--- NOTE | 2022-03-28 09:15 | PC.NURSE ---
to bedside, patient c/o shortness of breath. Orders received from Dr. Quiros to do stat CT and CXR.
[2022-03-28] MEDS: iohexol 350 mg/mL 500 mL Btl (per mL) IV ×2 (09:59→11:15)
[2022-03-28] MEDS: HYDROcodone-acetaminophen 5-325 mg Tablet PO (10:02)
--- NOTE | 2022-03-28 11:34 | P.DS_ITS ---
Discharge Providers RESTAURANT AND BAR MANAGER Date of Admission: 03/27/22 09:26 Date of Discharge: 03/28/22 Attending Provider at Admission: Neftaly Quiros MD Attending Provider at Discharge: Neftaly Quiros MD Primary RESTAURANT AND BAR MANAGER: Neftaly Quiros MD Primary Care Provider: Parker Montoya MD Reason for Visit Reason for Visit: D25.9 Hospital Course Hospital Course Mrs. Mason 47-year-old female admitted for planned total vaginal hysterectomy and bilateral salpingo-oophorectomy due to abnormal uterine bleeding fibroid uterus. The procedures were performed out complication. Overnight observation was uneventful. Adequate urine output. Tolerating diet well. Ambulating without difficulty. Afebrile and hemodynamically stable postoperative day 1. However she refers some shortness of breath a chest/lung CT scan ordered and was within normal limits with mild atelectasis. Incentive spirometer given to take home. She was counseled regarding pelvic rest for 6 weeks (no sex, no tampons, no vaginal douches). Return to the emergency room if any fever, increased bleeding or pain. I spent 35 minutes with the patient in discussion and counseling as documented above This documentation was created by [employer] boarding kennel or cattery operator software (known for inherent boarding kennel or cattery operator error). Every effort was made to assure accuracy of boarding kennel or cattery operator. Any obvious errors or omissions should be clarified with the author of the document. Physical Exam Narrative: GA: Alert and oriented ?3. HEENT: WNL. Heart: Regular rate and rhythm. Lungs: Clear to auscultation bilaterally. Abdomen: Bowel sounds present, nontender, minimal tenderness. ELECTRIC REFRIGERATOR SERVICER: No bleeding. Extremities: No edema, no cyanosis, no calves pain. Urinary Catheter Management: [place]: Cath Placed During This Visit: yes, but has since been removed by the nurse Reason for Continuing Indwelling Catheter: Decision to DC Catheter Urinary Catheter Date of Insertion: 03/27/22 Urinary Catheter Time of Insertion: 07:30 Date Urinary Catheter Removed: 03/28/22 Time Urinary Catheter Discontinued: 05:00 History History History 6 Term 4 0 Miscarriages/Ectopic 2 Living Children 4 Discharge Data Studies Completed and Pending Completed Studies During Hospitalization Category Date Time Status CT chest w con* [id number] Stat Cat Scan 03/28/22 09:12 Completed Pending at discharge Category Date Time Status XR chest 2V* [id number] Stat Exams 03/28/22 09:07 Taken Antibody Identification Routine Lab 10/31/22 11:00 Results Antigen Typing Patient Routine Lab 03/25/22 11:00 Results Leukocyte Reduced RBC Routine Lab 03/25/22 11:00 Results Type and Screen Routine Lab 03/25/22 11:00 Results Pathology: Surgical [PTH] Routine Pth 03/27/22 08:56 Received Radiology Impressions Chest CT 03/28/22 09:12 IMPRESSION: 1. Slight atelectasis in the lung bases. 2. No focal pneumonia. Lungs otherwise well aerated. 3. Normal caliber ascending and descending thoracic aorta. No evidence of aortic dissection. Proximal main pulmonary arteries are normal. 4. No other suspicious findings. Laboratory Results WBC 18.8 10^3/uL (4.0-10.0) H 03/28/22 05:48 RBC 3.94 10^6/uL (4.1-5.3) L 03/28/22 05:48 Hgb 8.5 g/dL (11.5-15.3) L 03/28/22 05:48 Hct 30.5 % (37.0-47.0) L 03/28/22 05:48 MCV 77.4 fl (81-99) L 03/28/22 05:48 MCH 21.6 pg (28.0-34.0) L 03/28/22 05:48 MCHC 27.9 g/dL (30.0-36.0) L 03/28/22 05:48 RDW 17.3 % (12.1-15.1) H 03/28/22 05:48 Plt Count 370 10^3/cmm (130-400) 03/28/22 05:48 MPV 9.5 fL (7.4-10.4) 03/28/22 05:48 Neut % (Auto) 70.2 % 03/25/22 11:00 Lymph % (Auto) 19.8 % 03/25/22 11:00 [place] % (Auto) 6.4 % 03/25/22 11:00 Eos % (Auto) 2.4 % 03/25/22 11:00 Baso % (Auto) 0.7 % 03/25/22 11:00 Neut # (Auto) 6.79 10^3/uL (1.8-7.7) 03/25/22 11:00 Lymph # (Auto) 1.9 10^3/uL (0.8-4.8) 03/25/22 11:00 [place] # (Auto) 0.6 10^3/uL (0.2-0.9) 03/25/22 11:00 Eos # (Auto) 0.2 10^3/uL (0.0-0.8) 03/25/22 11:00 Baso # (Auto) 0.1 10^3/uL (0.0-0.1) 03/25/22 11:00 Nucleated RBC % (auto) 0 % 03/25/22 11:00 Nucleated RBCs # 0.0 /100WBC 03/25/22 11:00 Sodium 137 mmol/L (136-145) 03/25/22 11:00 Potassium 4.4 mmol/L (3.5-5.1) 03/25/22 11:00 Chloride 100 mmol/L (98-107) 03/25/22 11:00 Carbon Dioxide 27 mmol/L (22-29) 03/25/22 11:00 Anion Gap 14.4 (5-19) 03/25/22 11:00 BUN 9 mg/dL (6-20) 03/25/22 11:00 Creatinine 0.7 mg/dL (0.5-0.9) 03/25/22 11:00 GFR Calculation 89.7 mL/min (90-130) L 03/25/22 11:00 Glucose 116 mg/dL (65-115) H 03/25/22 11:00 Calculated Osmolality 284 mOsm/kg (285-295) L 03/25/22 11:00 Calcium 9.5 mg/dL (8.5-10.5) 03/25/22 11:00 Total Bilirubin 0.2 mg/dL (0.15-1.2) 03/25/22 11:00 AST 15 U/L (0-32) 03/25/22 11:00 ALT 16 U/L (0-33) 03/25/22 11:00 Alkaline Phosphatase 101 U/L (35-105) 03/25/22 11:00 Total Protein 7.3 g/dL (6.6-8.7) 03/25/22 11:00 Albumin 4.6 g/dL (3.5-5.2) 03/25/22 11:00 Globulin 2.7 g/dL (1.3-4.6) 03/25/22 11:00 Urine Color Yellow (Yellow) 03/25/22 11:00 Urine Appearance Clear (CLEAR) 03/25/22 11:00 Urine pH 6.5 (5-7) 03/25/22 11:00 Ur Specific [place] 1.020 (1.005-1.030) 03/25/22 11:00 Urine Protein Neg (Negative) 03/25/22 11:00 Urine Glucose (UA) Norm (Normal) 03/25/22 11:00 Urine Ketones 1+ (Negative) H 03/25/22 11:00 Urine Blood Neg (Negative) 03/25/22 11:00 Urine Nitrate Negative (Negative) 03/25/22 11:00 Urine Bilirubin Neg (Negative) 03/25/22 11:00 Urine Urobilinogen Norm mg/dL (Negative) 03/25/22 11:00 Ur Leukocyte Esterase Negative (Negative) 03/25/22 11:00 Urine HCG, Qual Negative (Negative) 03/27/22 05:55 Blood Type A Positive 03/25/22 11:00 Rho(D) Type Positive 03/25/22 11:00 Antibody Screen Positive 03/25/22 11:00 Antibody Identification Anti-K 03/25/22 11:00 Antigen Identification K Antigen - NEGATIVE 03/25/22 11:00 Crossmatch See Detail 03/25/22 11:00 Vitals Last Vital Signs Temp 97.8 F 03/28/22 08:19 Pulse 90 03/28/22 08:19 Resp 15 03/28/22 08:19 BP 114/74 03/28/22 08:19 Pulse Ox 100 03/28/22 08:19 O2 Del Method 03/28/22 08:19 Discharge Plan Discharge Patient Disposition: Home Condition: Stable Prescriptions: New hydrocodone-acetaminophen 5-325 mg tablet 1 tab PO Q4H PRN (Reason: pain) Qty: 30 0RF acetaminophen 325 mg capsule 325 mg PO Q4H PRN (Reason: fever or pain) Qty: 60 0RF docusate sodium [Colace] 100 mg capsule 100 mg PO BID Qty: 60 0RF ferrous sulfate [Iron (ferrous sulfate)] 325 mg (65 mg iron) tablet 325 mg PO BID Qty: 60 0RF ibuprofen 800 mg tablet 800 mg PO TID PRN (Reason: pain) Qty: 60 0RF Continued aspirin [Adult Low Dose Aspirin] 81 mg tablet,delayed release (DR/EC) 81 mg PO DAILY alprazolam 0.5 mg tablet 0.5 mg PO BID acetaminophen [Tylenol] 325 mg Tablet 325 mg PO QID PRN (Reason: Pain) Qty: 60 0RF Discharge Orders: Discharge Order (Routine); Ordered 03/28/22 Ordered By: Neftaly Quiros Referrals: Ai Torrez APN, LOVELY [Nurse Practitioner] - 04/10/22 9:30 am Neftaly Quiros MD [Physician] - 2 weeks Discharge Diet: Usual diet Discharge Activity: Limit activity as instructed Patient Instructions: Hydrocodone/Acetaminophen (By mouth) (Vicodin, [place], Lortab), Salpingo-Oophorectomy (DC), Vaginal Hysterectomy (DC), OB Discharge Report, OB Food/Drug Interaction Guide, Opioid Safety Activity Restrictions/Additional Instructions: 1. Please call [facility] on next working day to make your post-operative appointment in 2 weeks. 2. Please stay home until you come back to the clinic on first post-operative check up. 3. Please follow instructions on your medications CAREFULLY. 4. If you have abdominal incision, do not cover it unless dressing is necessary because of drainage. OK to shower, but avoid bath. Leave steri-strips until they fall off. If they are still on one week after surgery, you may remove them. 5. If you had vaginal surgery or vaginal repair, Dr. Quiros may instruct you to take SITZ bath. 6. Yellow, blood tinged odorous vaginal discharge is usually normal after hysterectomy or vaginal surgeries. 7. No sexual intercourse, tampons, or douches until you are completely released from the post-operative care. 8. Avoid constipation by eating right and maybe using some Metamucil or Milk of Magnesia. 9. All prescription refills are given during the working hours. Please do no wait till it runs out. Call the clinic at [phone] before your medication runs out. The clinic will get in touch with your doctor to prescribe medications if necessary. 10. Please remain within 40 mile radius from our hospital because emergencies do happen now and then during the post-operative period. 11. If you have stairs at home, take one step at a time slowly and minimize the number of trips. It helps to stay in one floor for the next few days. No lifting except what you can lift by one hand until you are released from the post-operative care. 12. Driving is discouraged until you are well healed. It may be 3-4 weeks before you feel strong enough to drive. You should be able to turn and look through the rear window without pain and you should be able to push the brake pedal very hard without pain before you drive. No fast rules, but SAFETY should be your primary concern. DO NOT drive if you are on sedating medications such as narcotics. 13. Call the clinic (during working hours) to make urgent appointment or go to the Emergency room, if any of the following occurs: i. Vaginal bleeding becomes heavy, more than a period. ii. Incision becomes red and sore, or drains pus. iii. Your temperature is over 100.4 or you have chill. iv. IV site becomes red and swollen (a little ``knot?? is usually OK) v. Persistent nausea and vomiting vi. Persistent constipation or diarrhea vii. Rash or allergic reaction to medications. Discharge Attestations RESTAURANT AND BAR MANAGER Time Spent in Discharge Care*: greater than 30 min Coding Level of Care Code Acute Post Hole Digger for Olu Curry
--- NOTE | 2022-03-28 11:57 | PC.NURSE ---
Rod RN at bedside for Incentive spirometer education. Patient verbalized understanding and will discharge with device as ordered by MD. ONELIA WONG
[2022-03-28 12:32] VITALS: BP 161/90; PULSE 79; RESP 20; TEMP 36.3
== END 2022-03-28 12:32 | disposition home or self-care (01) ==
LOC: OBGYN 09:26
PROVIDERS: Admitting Provider Obstetrics & Gynecology; PCP Family Medicine; Visit Provider Obstetrics & Gynecology
PROC: (CPT 58260; principal; 2022-03-27 07:00)
PROC: (CPT 58720; 2022-03-27 07:00)
DX: N93.9 Abnormal uterine and vaginal bleeding, unspecified (principal); Z86.73 Personal history of transient ischemic attack (TIA), and cerebral infarction without residual deficits
CPT/HCPCS: 58260; 36415; 71046; 71260; 80053; 80503; 81003; 81025; 84703; 85025; 85027; 86850; 86870; 86900; 86902; 86920; 88307; G0378; J0330; J1100; J1170; J1200; J1885; J1956; J2250; J2370; J2405; J2704; J2710; J2765; J3010; J3370; J3490; J7030; J7040; J7050; J7121; Q9967; Q9968